=== PATIENT | female | born 1935 | race Caucasian/White ===

== ENCOUNTER 2023-09-25 22:06 | Inpatient (IN) | payer MEDICARE, BC, SELFPAY ==
[2023-09-25 18:59] VITALS: BMI 29.2
[2023-09-25 19:02] VITALS: BP 175/75
[2023-09-25 19:04] LABS: Glucose - Point of Care 255 mg/dl (70-99)
[2023-09-25 19:05] VITALS: BP 175/75
[2023-09-25 19:34] LABS: % Basophils 0.5 % (0-2); % Eosinophils 4.7 % (0-6); % Immature Granulocytes 0.3 % (0-0.5); % Lymphocytes 13.2 % (20.5-51.1); % Monocytes 5.5 % (1.7-9.3); % Neutrophils 75.8 % (42.2-75.2); Absolute Eosinophils 0.3 10^3/uL (0-0.7); Absolute Lymphocytes 0.8 10^3/uL (1.2-3.4); Absolute Monocytes 0.3 10^3/uL (0.1-0.6); Absolute Neutrophils 4.7 10^3/uL (1.4-6.5); Hematocrit 30.7 % (37.0-47.0); Hemoglobin 9.7 g/dL (12.0-16.0); Mean Corp Hgb Conc. 31.6 g/dL (33.0-37.0); Mean Corpuscular Hgb 29.8 pg (27.0-31.0); Mean Corpuscular Volume 94.2 fL (81.0-99.0); Mean Platelet Volume 9.7 fL (7.4-10.4); Nucleated Red Blood Cells % 0 %; Platelet Count 204 10^3/uL (130-400); Red Blood Cell Count 3.26 10^6/uL (4.20-5.40); Red Cell Dist. Width 14.3 % (11.5-14.5); White Blood Cell Count 6.2 10^3/uL (4.8-10.8)
--- NOTE | 2023-09-25 19:39 | ED.GENMED ---
Addendum entered and electronically signed by Andrea Wells DO 09/25/23 20:55:
Will give aspirin, not a tPA TNK candidate onset likely greater than 24 hours ago, will continue with permissive hypertension
Original Note:
History of Present Illness
General
Chief Complaint: Change in Mental Status
Source: patient, records and family
Exam Limitations: clinical condition and altered mental status
Time Seen by Provider: 09/25/23 19:04
Nursing documentation reviewed up to this point in time: agreed with
Travel History
Have you had any contact with someone who has COVID-19?: Unable to Answer
Do you have any symptoms of coronavirus? Fever > 100 degrees, chills, cough, shortness of breath, sore throat, loss of taste or smell, muscle aches, or headache?: Unable to Answer
History of Present Illness
History of Present Illness:
88-year-old female from [facility] where she has been for few days recently admitted with strep bacteremia to [place] treated with antibiotics she is diabetic, normal Monday night Monday morning yesterday apparently had some confusion since
which has been confused per the family speech has been slow, no fever no vomiting, my evaluation she moves all extremities, left lower extremity is swollen little bit red
Started on Keflex today, had a negative urinalysis today
Past History
Past History
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
Social History
Tobacco: Non-smoker
Alcohol: None
Drug: None
Living: shelter
Employment: Not employed
Phy Exam
Physical Exam
Physical Exam:
Physical Exam
General: no apparent distress, not acutely ill
Neck: No jaundice
Heart: regular
Lungs: no acute respiratory distress. clear bilaterally
Abdomen: non tender
Neuro: alert moves all extremities? right gaze absence
Skin: no rash
Psychiatric: cooperative
Extremities: edema, warm l>r
Course
Orders/Labs/Results
Orders:
Orders
09/25/23 19:07
EKG [Electrocardiogram (*1)] Urgent
Reason for Study: Other
Other Reason for Exam: change in mental status
09/25/23 19:08
EKG- Treatment ONCE
09/25/23 19:26
Complete Blood Count/With Diff Urgent
Comprehensive Metabolic Panel Urgent
09/25/23 19:27
Lactic Acid Urgent
09/25/23 19:28
Blood Culture Urgent
ESTRELLA Source: Blood/Venous
Specimen Description:
09/25/23 19:34
CT Head W/o Iv Contrast Urgent
Comment:
Reason For Exam: confusion
09/25/23 19:39
Blood Culture Urgent
ESTRELLA Source: Blood/Venous
Specimen Description:
Abnormal Lab Results
09/25/23 09/25/23
19:03 19:26
RBC 3.26 L 10^6/uL
(4.20-5.40)
Hgb 9.7 L g/dL
(12.0-16.0)
Hct 30.7 L %
(37.0-47.0)
MCHC 31.6 L g/dL
(33.0-37.0)
Absolute Lymphs (auto) 0.8 L 10^3/uL
(1.2-3.4)
Neutrophils % 75.8 H %
(42.2-75.2)
Lymphocytes % 13.2 L %
(20.5-51.1)
BUN 22 H mg/dl
(7-17)
Creatinine 1.1 H mg/dL
(0.6-1.0)
Glucose 248 H mg/dl
(70-99)
Calcium 8.3 L mg/dl
(8.4-10.2)
Alkaline Phosphatase 164 H U/L
(38-126)
Albumin 3.0 L g/dl
(3.5-5.0)
POC Glucose 255 H mg/dl
(70-99)
09/25/23 19:26
09/25/23 19:26
Vital Signs
Initial and Last Documented VS:
Initial Vital Signs
Resp
16
09/25/23 19:01
Last Documented Vital Signs
Temp Pulse Resp BP Pulse Ox
98.4 F 85 13 175/75 97
09/25/23 19:05 09/25/23 19:30 09/25/23 19:30 09/25/23 19:05 09/25/23 19:35
MDM/Problems Addressed
Differential Diagnosis Includes:
Cellulitis electrolyte abnormality stroke deconditioning
MDM/Problems Addressed:
Confusion
Chronic conditions affecting care:
Diabetes
Acute Exacerbation and/or Progression of Chronic Illness:
Diabetes
*Radiology
Radiology exam reviewed: preliminary read by ED provider
*Pulse Oximetry
Patient hypoxic: no
*EKG
Interpreted by ED Provider?: Yes
Interpretation: abnormal
Comparison EKG: no comparison EKG present
Heart Rate: 78
Rate: normal
Rhythm: sinus
Ischemia: non-specific ST changes
*[employer] Interpretation
Rate: normal
Interpretation: normal
Heart Rate: 78
*Critical Care Note
Total Time (30-74mins, 75-104mins- exclusive of procedures): Not Applicable
Update Note
Update Note:
Update labs noted CT report noted I think this explains her mental status change visual changes on the right
ED Attending Note
-
Portions of this chart may have been created with voice recognition software.� Occasional wrong word or��sound alike� substitutions may have occurred due to the inherent limitations of voice recognition software.
Discharge Plan
Departure
Patient Disposition: Admit
Date of Disposition: 09/25/23
Time of Disposition: 20:52
Admit to: Telemetry
Presentation/result/management discussed w/ accepting MD/DO: Hospitalist
Patient with high blood pressure during this ER visit?: Yes
Condition: Fair
Discharge Problem:
Subacute stroke
Prescriptions:
No Action
atorvastatin 40 mg Tablet
40 mg PO DAILY
oxybutynin chloride 10 mg Tablet Extended Release 24hr
10 mg PO DAILY
acetaminophen 500 mg Tablet
1,000 mg PO Q8H PRN (Reason: mild pain)
levothyroxine 100 mcg Tablet
100 mcg PO DAILY
magnesium hydroxide [Milk of Magnesia] 400 mg/5 mL Suspension
30 ml PO DAILY PRN (Reason: if no bm x 2 days)
bisacodyl [Dulcolax (bisacodyl)] 10 mg Suppository
10 mg WV DAILY PRN (Reason: if no bm in 8hrs after MOM)
cephalexin [Keflex] 500 mg Capsule
500 mg PO BID
pantoprazole 40 mg Tablet,Delayed Release (Dr/Ec)
40 mg PO DAILY
Fleet Enema 19-7 gram/118 mL Enema
118 ml WV DAILY PRN (Reason: if no bm 8hrs after suppository)
folic acid 1 mg Tablet
1 mg PO DAILY
diclofenac sodium 50 mg Tablet,Delayed Release (Dr/Ec)
50 mg PO BID
furosemide 20 mg Tablet
20 mg PO DAILY
Santyl 250 unit/gram Ointment
1 applic TOPICAL BID
Patient Comments:
09/25/2023: apply to sacral wound
lisinopril 40 mg Tablet
40 mg PO DAILY
pregabalin 50 mg Capsule
50 mg PO DAILY
insulin glargine 100 unit/mL (3 mL) Insulin Pen
18 unit SC HS
cholecalciferol (vitamin D3) [Vitamin D3] 50 mcg (2,000 unit) Tablet
50 mcg PO DAILY
buprenorphine HCl 75 mcg Film
75 mcg BUCCAL Q12H
naloxone 4 mg/actuation Irwin,Non-Aerosol
4 mg INTRANASAL Q3M PRN (Reason: opioid overdose)
Referrals:
Ankit Gil MD [Family Provider] -
Interventions
Interventions:
*Risk Screen - Suicide Last Done: 09/25/23 19:33
*General Assessment Last Done: 09/25/23 19:32
*Neglect/Abuse Screening Last Done: 09/25/23 19:33
ED- Fall Risk Assessment Last Done: 09/25/23 19:34
*ED COVID-19 Vaccine History Last Done: 09/25/23 19:32
ED- Pulmonary Assessment Last Done: 09/25/23 19:35
ED- Neurological Assessment Last Done: 09/25/23 19:09
ED- Cardiac Assessment Last Done: 09/25/23 19:34
ED Swallowing Screen Last Done: 09/25/23 19:34
Discharge Date and Time
Print Language: MALDIVIAN
[2023-09-25 19:46] LABS: Lactic Acid 1.1 mmol/L (0.7-2.0)
[2023-09-25 19:53] LABS: ALT (SGPT) 18 U/L (0-35); AST (SGOT) 32 U/L (14-36); Alkaline Phosphatase 164 U/L (38-126); Blood Urea Nitrogen 22 mg/dl (7-17); Calcium 8.3 mg/dl (8.4-10.2); Carbon Dioxide 26 mmol/L (22-30); Chloride 107 mmol/L (98-107); Estimated Creatinine Clearance 35 ml/min; Glucose 248 mg/dl (70-99); Sodium 139 mmol/L (135-145); Total Bilirubin 0.7 mg/dl (0.2-1.3); Total Protein 6.7 g/dl (6.3-8.2); eGFR 48.03
[2023-09-25 20:00] VITALS: BP 150/95
[2023-09-25 21:01] VITALS: BP 186/84
--- NOTE | 2023-09-25 21:26 | HPS.HSE ---
Family Physician
-
Family Physician: Ankit Gil
Chief Complaint
-
AMS
History of Present Illness
88F Res of CH, HX DM, HLD, Hypothyroid, recent Lt leg cellulitis complicated by strep bacteremia treated with at to [place]. Then sent to [facility]
Currently on Keflex
Evaluation for AMS noted by family especially abnormal slurred speech. Normally excellent memory, Nl speech
No prior HX CVA. No ton blood thinner.
Baseline ch ambulatory dysfunction . Use walker.
Yesterday, family noted slurred speech and confusion. No noticeable weakness over 24hrs
According to ER attd , noted Rt sided neglect but not replicate on my exam
.
Medical History
Past Medical History
Past Medical History: Reports HTN, Hypercholesterolemia and Hypothyroidism
Additional Past Medical History:
recent strep bacteremia, treated with ABx at to [place].
Past Surgical History: Reports Other
Social History
Tobacco: Non-smoker
Alcohol: None
Drug: None
Living: Skilled Nursing
Family History
Family History: Not pertinent
Allergies / Home Medications
Allergies reflects when Allergies were last updated in [employer].
Home Medications with original date entered in [employer]
Allergy/Medication List:
Allergies
Allergy/AdvReac Type Severity Reaction Status Date / Time
Sulfa (Sulfonamide Allergy Unknown Unknown Verified 09/25/23 20:30
Antibiotics)
Home Medications
acetaminophen 500 mg tablet 1,000 mg PO Q8H PRN mild pain 09/25/23
atorvastatin 40 mg tablet 40 mg PO DAILY 09/25/23
bisacodyl 10 mg rectal suppository (Dulcolax (bisacodyl)) 10 mg NH DAILY PRN if no bm in 8hrs after MOM 09/25/23
buprenorphine HCl 75 mcg buccal film 75 mcg buccal Q12H 09/25/23
cephalexin 500 mg capsule 500 mg PO BID 09/25/23
cholecalciferol (vitamin D3) 50 mcg (2,000 unit) tablet (Vitamin D3) 50 mcg PO DAILY 09/25/23
collagenase clostridium histo. 250 unit/gram topical ointment (Santyl) 1 applic topical BID 09/25/23
diclofenac sodium 50 mg tablet,delayed release 50 mg PO BID 09/25/23
folic acid 1 mg tablet 1 mg PO DAILY 09/25/23
furosemide 20 mg tablet 20 mg PO DAILY 09/25/23
insulin glargine 100 unit/mL (3 mL) subcutaneous pen 18 unit SC HS 09/25/23
levothyroxine 100 mcg tablet 100 mcg PO DAILY 09/25/23
lisinopril 40 mg tablet 40 mg PO DAILY 09/25/23
magnesium hydroxide 400 mg/5 mL oral suspension (Milk of Magnesia) 30 ml PO DAILY PRN if no bm x 2 days 09/25/23
naloxone 4 mg/actuation nasal spray 4 mg intranasal Q3M PRN opioid overdose 09/25/23
oxybutynin chloride 10 mg tablet,extended release 24 hr 10 mg PO DAILY 09/25/23
pantoprazole 40 mg tablet,delayed release 40 mg PO DAILY 09/25/23
pregabalin 50 mg capsule 50 mg PO DAILY 09/25/23
sodium phosphates 19 gram-7 gram/118 mL enema (Fleet Enema) 118 ml NH DAILY PRN if no bm 8hrs after suppository 09/25/23
Review of Systems
-
Constitutional: Reports No Symptoms
EENT: Reports No Symptoms
Respiratory: Reports No Symptoms
Cardiac: Reports No Symptoms
Abdomen/GI: Reports No Symptoms
: Reports No Symptoms
Musculoskeletal: Reports No Symptoms
Skin: Reports No Symptoms
Neurological: Reports See HPI
Endocrine: Reports No Symptoms
Hematologic/Lymphatic: Reports No Symptoms
Psych: Reports No Symptoms
Physical Exam
Vital Signs
Vital Signs
Temp Pulse Resp BP Pulse Ox
98.4 F 85 13 175/75 97
09/25/23 19:05 09/25/23 19:30 09/25/23 19:30 09/25/23 19:05 09/25/23 19:35
Physical Exam
General: Well Developed, No Apparent Distress and Comfortable
HEENT: NormoCephalic and Anicteric
Cardiac: S1/S2 and Regular Rhythm
Breast: Deferred by me
GI: Soft, Non Tender, Non Distended and Normal Bowel Sounds
Genito-urinary: Deferred by me
Musculoskeletal: Edema, Left Lower Extremity (receeding erythema, decreased edema per family )
Neuro: Awake, Alert, Oriented (to person and Hospital ), No Motor Deficits, Slurred Speech (mild expressive dysphasic ? cannot name 3 fruits scorrectly ) and Other (Abnormal Rt lateral gaze ); No Facial Droop or Tremors
Psych: Calm
Laboratory Results
-
09/25/23 19:26
09/25/23 19:26
Laboratory Results
Lactic Acid 1.1 mmol/L (0.7-2.0) 09/25/23 19:27
Total Bilirubin 0.7 mg/dl (0.2-1.3) 09/25/23 19:26
AST 32 U/L (14-36) 09/25/23 19:26
ALT 18 U/L (0-35) 09/25/23 19:26
Alkaline Phosphatase 164 U/L (38-126) H 09/25/23 19:26
Data Reviewed
-
CT Scan: Report Reviewed by me
Lab Data: Labs Reviewed by me
Impression/Plan
-
Reviewed VS: HR 85 BP 175/75
Data
Hgb 9.7
BUN 22
Cr 1.1
eGFR 48
BG 248
AKP 164
Alb 3.0
BCx sent
EKG
NORMAL SINUS RHYTHM
RIGHT BUNDLE BRANCH BLOCK
ABNORMAL ECG
HCT:
In the left parietal, occipital, and posterior and superior temporal lobes, focal area of decreased density, as described above. This likely represents an area of infarction, and most likely a subacute infarct. This could conceivably represent an
old area of infarction.
There is a second rounded area of decreased density within the posterior left temporal lobe more inferiorly, and this is also suspicious for a focal area of subacute infarction.
No evidence for mass effect or midline shift. No evidence for acute intracranial hemorrhage.
No prior admission to
ASSESSMENT & PLAN
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
HLD on atorvastatin to 40 HS
- s/p ASA 325
- then cont baby ASA daily
- [place] atorvastatin to 80 HS
- ECHO
- Brain MRI, MRA CoW, H & N
Lt leg cellulitis complicated by strep bacteremia @ OSH
Recent UTI
Afebrie , nl WCC
- check UA
- BCx x 2
- cont. PO Keflex for now
Hyperglycemia
IDDM
- add ISS low
- cont Lantus
Essential HTN
- Allow permissive HTN not more than 200/110
DVT Px: SCD
Code: Full
IP TLM
[2023-09-25 22:00] VITALS: BP 185/76
[2023-09-25] MEDS: ASPIRIN 325 MG PO (22:41)
[2023-09-25 23:00] VITALS: BP 95/64
[2023-09-26] VITALS (8 sets, daily range): BP systolic 112–165; BP diastolic 52–77; PULSE 86; O2SAT 96; BMI 25.3
[2023-09-26 01:43] LABS: Glucose - Point of Care 269 mg/dl (70-99)
[2023-09-26] MEDS: LANTUS 0.119999999999999996 UNITS SC ×2 (01:55→21:58)
[2023-09-26 02:12] LABS: Urine Albumin Negative (Neg - Trace); Urine Bilirubin Negative (Negative); Urine Character Clear (Clear); Urine Color Yellow; Urine Glucose Negative (Negative); Urine Ketone Negative (Negative); Urine Leukocyte Negative (Negative); Urine Nitrite Positive (Negative); Urine Occult Blood Negative (Negative); Urine Urobilinogen Negative (Neg - 1+); Urine pH 6.5 (5.0-9.0)
[2023-09-26 02:24] LABS: Urine Bacteria Many (Negative); Urine Red Blood Cell 0-2 /HPF (0-2); Urine White Cell 0-2 /HPF (0-5)
--- NOTE | 2023-09-26 03:00 | PTCARENOTE ---
Pt arrived to unit from ED and was a pullover assist x2 into bed from stretcher. Pt is AAOx1 to self only, confused but pleasant. Bed alarm in place for safety. Pt's call lopez in reach. VS on admission stable. Unable to give pt stroke packet
d/t cognitive impairment and no family at bedside. NIH on admission 4 for mild slurring and dysarthria, pt does not know month or age. SCDs in place. Will continue to monitor.
[2023-09-26] MEDS: SYNTHROID 100 MCG PO (06:02)
[2023-09-26 07:27] LABS: Glucose - Point of Care 119 mg/dl (70-99)
[2023-09-26] MEDS: NOVOLOG FLEXPEN-LOW RESISTANCE SC ×3 (07:28→17:25)
[2023-09-26 07:32] LABS: Hematocrit 25.1 % (37.0-47.0); Hemoglobin 8.2 g/dL (12.0-16.0); Mean Corp Hgb Conc. 32.7 g/dL (33.0-37.0); Mean Corpuscular Hgb 29.6 pg (27.0-31.0); Mean Corpuscular Volume 90.6 fL (81.0-99.0); Mean Platelet Volume 9.6 fL (7.4-10.4); Platelet Count 179 10^3/uL (130-400); Red Blood Cell Count 2.77 10^6/uL (4.20-5.40); Red Cell Dist. Width 14.2 % (11.5-14.5); White Blood Cell Count 6.6 10^3/uL (4.8-10.8)
[2023-09-26 07:58] LABS: HDL Cholesterol 29 mg/dl; Triglyceride 44 mg/dl (10-149); Very Low Density Lipoprotein 8 mg/dl (0-30)
[2023-09-26 07:59] LABS: ALT (SGPT) 15 U/L (0-35); AST (SGOT) 26 U/L (14-36); Albumin 2.4 g/dl (3.5-5.0); Alkaline Phosphatase 134 U/L (38-126); Blood Urea Nitrogen 19 mg/dl (7-17); Calcium 8.1 mg/dl (8.4-10.2); Carbon Dioxide 25 mmol/L (22-30); Chloride 108 mmol/L (98-107); Estimated Creatinine Clearance 34 ml/min; Glucose 120 mg/dl (70-99); Potassium 3.7 mmol/L (3.5-5.1); Sodium 138 mmol/L (135-145); Total Bilirubin 0.4 mg/dl (0.2-1.3); Total Protein 5.7 g/dl (6.3-8.2); eGFR 48.03
--- NOTE | 2023-09-26 08:06 | CON.NEURO4 ---
Addendum entered and electronically signed by Damian Miller MD 09/26/23 14:09:
Studies reviewed.
I have personally examined the patient. I reviewed and agree with the DIGITAL MARKETING ASSOCIATE's Note.
My addenda:
Awake, alert, interactive. No acute distress.
Speech intact with reduced output. Patient unable to name objects.
Follows 2-step requests w/ difficulty. No tremor.
Extra-ocular movements grossly intact.
Facial movements full and symmetric. Hearing intact to normal conversational volume.
Normal UE movements bilaterally.
Neck: full ROM.
Chest: no dyspnea
Heart: no JVD
Ext: (-) Clubbing, (-) Cyanosis, (-) Edema
IMPRESSIONS/RECOMMENDATIONS:
Abrupt onset of aphasia and confusion
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
Continue aspirin 81 mg due to risk of future ischemic injury
Goal of normotension
No clear benefit to echocardiogram
Rehabilitation evaluations
Follow cholesterol levels, little benefit likely to the use of lipid lowering agent
D/W patient / family
Will continue to follow peripherally..
Original Note:
Documented by User: Geri Guzman NP 09/26/23 12:00
Consultation - Neurology 4
-
CONSULTING PHYSICIAN: Damian Miller MD
REFERRING PHYSICIAN: Hospitalists/Dr. Bolanos
DICTATED BY: NATANAEL Hartman
DATE/TIME OF REQUEST: 09/26/23
DATE/TIME OF CONSULTATION: 09/26/23
Reason for Consultation: CVA
History of Present Illness:
This is an 88-year-old right-handed female who has presented to the hospital from [facility] rehab on 09/25/23 with report of confusion and speech difficulty. Patient was recently hospitalized at [facility] with LLE cellulitis
complicated by strep bacteremia then was discharged to [facility] for rehab. Patient is unable to provide history due to aphasia and confusion. Her granddaughter at bedside reports that family had dinner with the patient three days ago on 09/23/23
and report that the patient was at her baseline then. The following morning (09/24/23), she arrived at 1100 to see the patient, and noted that she could not get her words out, her speech sounded garbled, and she was squinting/struggling to see the TV
remote. At baseline, she is oriented x3 with no overt vision issues, and ambulates with a rolling walker. The [place] sent her urine for culture and started her on PO Keflex attributing her symptoms to a possible UTI. Yesterday (09/25/23), her symptoms had
still not improved, prompting her to be sent to the ER for evaluation. CT head was obtained in the ER and demonstrates a left parietal, occipital, and posterior/superior temporal lobe subacute ischemic infarct. She was not a candidate for TNK/IAT
due to outside of the time window and a stroke already established on CT head imaging. Patient reports that she feels confused. She denies any headache, dizziness, neck/back pain, speech/swallow difficulty, numbness, weakness, chest pain,
palpitations, and shortness of breath. Per patient's granddaughter, she has had TIAs and small old strokes visualized on brain imaging but she cannot provide any further details. She was not taking any blood thinning medications and it is unclear
why she wasn't on aspirin. Her granddaughter does not that she has had several falls with head and shoulder trauma in the past few years.
Past Medical History: HTN, HLD, NIDDM requiring insulin, hypothyroidism, recent strep bacteremia secondary to LLE cellulitis
Surgical History: Unknown.
Family History: Unknown.
Social History: Denies tobacco, alcohol, and illicit drug use.
Allergies: Sulfa.
Home Medications: See below.
Review of Symptoms:
Patient denies any fever, headache, chest pain, shortness of breath, GI or symptoms.
�Per the HPI.�All systems are reviewed negative except above.
�- Remove any of these problems that patient may have complained about in the HPI.
�- If patient is unresponsive, intubated or demented, say 'Per the HPI. I am unable to obtain a complete review of systems�because of patient's inability to provide history.'
Physical Exam:
The patient is afebrile, breathing is unlabored, abdomen is nondistended, skin is warm and dry, LLE with erythema, trace BLE edema.
NIH Stroke Scale:
I performed the NIH stroke scale on the patient on 09/26/23 at 1045. The patient scored 7 points on the NIH stroke scale assessment, which were assigned as follows: See below.
Neurologic Examination:
The patient is awake and alert. She is oriented to name only. She is able to follow some one-step commands and answer questions some appropriately. There is moderate expressive >receptive aphasia and mild dysarthria. On cranial nerve assessment,
pupils are 3 mm bilateral, round and reactive to light and accommodation. Visual hoyt are challenging to assess but appear decreased on the right in the right eye>left eye. Extraocular movements are intact. There is no facial asymmetry. Hearing is
intact bilaterally to normal conversation volume. Tongue palate and uvula are midline. Motor strengths are 5/5 LUE, 4+/5 RUE and 5/5 lower extremities on medical research Lytton scale. There is drift in the RUE. Mild swan necking. Mild low
amplitude persistent head tremor. Deep tendon reflexes are 1+ bilateral upper and absent bilateral lower extremities. Babinski is absent bilaterally. DEEPAK sensation. There is intermittent right-sided neglect on DBS. Coordination is intact by finger
to nose bilaterally.
Lab Results: See below.
Neuro Imaging:
1. CT Head 09/25/23: In the left parietal, occipital, and posterior and superior temporal lobes, focal area of decreased density, as described above. This likely represents an area of infarction, and most likely a subacute infarct. This could
conceivably represent an old area of infarction. There is a second rounded area of decreased density within the posterior left temporal lobe more inferiorly, and this is also suspicious for a focal area of subacute infarction. No evidence for mass
effect or midline shift. No evidence for acute intracranial hemorrhage.
2. MRI brain 09/26/23: Severely limited examination due to patient inability to hold still, motion artifact and repeat fast scanning. There is an acute/subacute infarct in the left temporal, parietal and occipital lobes as noted on the prior CT the
day before. There is no significant adjacent mass effect or edema. There is a small amount of hemosiderin consistent with hemorrhage in the posterior superior aspect of the occipital lobe portion of the infarct. Moderate volume loss. Moderate
leukoaraiosis.
3. Carotid ultrasound 09/26/23: Negative for flow-limiting carotid stenosis. By velocity criteria, any internal carotid artery stenosis present is in the range of 0-49%
Differentials for the patient's presentation include:
1. Acute/subacute left temporal, parietal, and occipital lobe ischemic infarct with a small amount of hemorrhage in the posterior occipital lobe portion of the infarct.
Patient has the following risk factors for their symptoms: Age, HTN, HLD, NIDDM
IV Tenecteplase/IAT candidacy: She was not a candidate for TNK/IAT due to outside of the time window and a stroke already established on CT head imaging.
Recommendations:
-Continue aspirin 81mg daily indefinitely.
-Goal normotension as it is greater than 24 hours from symptom onset.
-Ultrasound BLE ordered/pending to rule-out DVT.
-TTE ordered/pending per primary team.
-LDL goal <70. Inconclusive lipid panel results, will repeat study tonight. Continue home atorvastatin 40mg daily.
-Goal normoglycemia, hbA1c is 8.3.
-NIHSS and neurological checks per unit guidelines.
-Provide patient/family with stroke education packet.
-PT/OT/ST evaluations.
-DVT prophylaxis.
-Patient needs outpatient follow-up with Neurology in about 4 weeks, may see the DIGITAL MARKETING ASSOCIATE or one of the physicians.
Discussed patient care with: Dr. Miller, the patient
Vital Signs and Labs
-
Vital Signs and Labs:
Vital Signs
Temp Pulse Resp BP Pulse Ox
97.5 F 79 18 152/66 97
09/26/23 07:30 09/26/23 07:30 09/26/23 07:30 09/26/23 07:30 09/26/23 07:30
Lab Results
09/26/23 07:05
09/26/23 07:05
Sodium 138 mmol/L (135-145) 09/26/23 07:05
Potassium 3.7 mmol/L (3.5-5.1) 09/26/23 07:05
BUN 19 mg/dl (7-17) H 09/26/23 07:05
Glucose 120 mg/dl (70-99) H 09/26/23 07:05
Calcium 8.1 mg/dl (8.4-10.2) L 09/26/23 07:05
LDL Cholesterol, Calc 12.22395 mg/dl 09/26/23 07:05
Medications
-
Active Medications
Generic Name Dose Route Start Last Admin
Trade Name Freq PRN Reason Stop Dose Admin
Acetaminophen 650 mg 09/26/23 00:00
Acetaminophen 650 Mg Rectal Suppository RECTAL 10/24/23 00:00
Q4HPRN PRN
LEI, mild pain, or temp >100.4F
Acetaminophen 650 mg 09/26/23 00:00
Acetaminophen 325 Mg Tablet PO 10/24/23 00:00
Q4HPRN PRN
LEI, mild pain, or temp >100.4F
Aspirin 81 mg 09/26/23 08:00
Aspirin 81 Mg Chewable Tablet PO 10/24/23 07:59
DAILY FLORECITA
Atorvastatin Calcium 80 mg 09/26/23 08:00
Atorvastatin (Lipitor) 80 Mg Tablet PO 10/24/23 07:59
DAILY FLORECITA
Dextrose 12.5 grams 09/26/23 00:00
Dextrose 50% (0.5 Grams/Ml) 50 Ml Syringe IV 10/24/23 00:00
[id number] PRN
hypoglycemia
Protocol
Furosemide 20 mg 09/26/23 08:00
Furosemide 20 Mg Tablet PO 10/24/23 07:59
DAILY FLORECITA
Glucagon 1 mg 09/26/23 00:00
Glucagon 1 Mg Vial IM 10/24/23 00:00
PRN PRN
hypoglycemia
Protocol
Insulin Glargine 12 units/ 0.12 mls @ 0 mls/hr 09/26/23 01:00 09/26/23 01:55
Device SC 10/24/23 00:59 0.12 mls
HS FLORECITA Administration
As Directed
Insulin Aspart 0 units 09/26/23 07:30 09/26/23 07:28
Insulin Aspart Low Resistance 300 Units/3 Ml Pen.Injctr SC 10/24/23 07:29 Not Given
AC FLORECITA
Protocol
Levothyroxine Sodium 100 mcg 09/26/23 07:00 09/26/23 06:02
Levothyroxine 100 Mcg Tablet PO 10/24/23 06:59 100 mcg
DAILY AT 0700 FLORECITA Administration
Lisinopril 40 mg 09/26/23 08:00
Lisinopril 20 Mg Tablet PO 10/24/23 07:59
DAILY FLORECITA
Oxybutynin Chloride 5 mg 09/26/23 08:00
Oxybutynin 5 Mg Tablet PO 10/24/23 07:59
BID FLORECITA
Pantoprazole Sodium 40 mg 09/26/23 08:00
Pantoprazole 40 Mg Delayed Release Tablet PO 10/24/23 07:59
DAILY FLORECITA
Pregabalin 50 mg 09/26/23 08:00
Pregabalin 50 Mg Capsule PO 10/24/23 07:59
DAILY FLORECITA
Sodium Chloride 0 flush 09/26/23 01:00
Sodium Chloride 0.9% (Flush) Syringe IV 10/24/23 00:59
PER PROTOCOL FLORECITA
Home Medications
�Medication �Instructions �Recorded
acetaminophen 500 mg tablet 1,000 mg PO Q8H PRN mild pain 09/25/23
atorvastatin 40 mg tablet 40 mg PO DAILY 09/25/23
bisacodyl 10 mg rectal suppository 10 mg LA DAILY PRN if no bm in 09/25/23
(Dulcolax (bisacodyl)) 8hrs after MOM
buprenorphine HCl 75 mcg buccal 75 mcg buccal Q12H 09/25/23
film
cephalexin 500 mg capsule 500 mg PO BID 09/25/23
cholecalciferol (vitamin D3) 50 50 mcg PO DAILY 09/25/23
mcg (2,000 unit) tablet (Vitamin
D3)
collagenase clostridium histo. 250 1 applic topical BID 09/25/23
unit/gram topical ointment (Santyl)
diclofenac sodium 50 mg 50 mg PO BID 09/25/23
tablet,delayed release
folic acid 1 mg tablet 1 mg PO DAILY 09/25/23
furosemide 20 mg tablet 20 mg PO DAILY 09/25/23
insulin glargine 100 unit/mL (3 18 unit SC HS 09/25/23
mL) subcutaneous pen
levothyroxine 100 mcg tablet 100 mcg PO DAILY 09/25/23
lisinopril 40 mg tablet 40 mg PO DAILY 09/25/23
magnesium hydroxide 400 mg/5 mL 30 ml PO DAILY PRN if no bm x 2 09/25/23
oral suspension (Milk of Magnesia) days
naloxone 4 mg/actuation nasal spray 4 mg intranasal Q3M PRN opioid 09/25/23
overdose
oxybutynin chloride 10 mg 10 mg PO DAILY 09/25/23
tablet,extended release 24 hr
pantoprazole 40 mg tablet,delayed 40 mg PO DAILY 09/25/23
release
pregabalin 50 mg capsule 50 mg PO DAILY 09/25/23
sodium phosphates 19 gram-7 118 ml LA DAILY PRN if no bm 8hrs 09/25/23
gram/118 mL enema (Fleet Enema) after suppository
NIH Stroke Score
Subsequent NIH Scale
Date of Subsequent NIH Scale: 09/26/23
Time of Subsequent NIH Scale: 10:45
NIH Stroke Score
Level of Consciousness: 0 - Alert
LOC Questions: 2-Neither correct
LOC Commands: 0-Performs both correctly
Best Horizontal Gaze: 0-Normal
Visual Hoyt: 1=Partial hemianopia
Facial Palsy: 0=Normal, symmetrical
Motor - Right Arm: 1=Drift < 10 seconds
Motor - Left Arm: 0=No drift 10 seconds
Motor - Right Le-No drift 5 seconds
Motor - Left Le-No drift 5 seconds
Limb Ataxia: 0-Absent
Sensation: 0-Normal
Best Language: 1-Mild aphasia
Dysarthria: 1-Mild slurring
Extinction and Inattention: 1-Sensory inattention
Total Score:: 7
Modified Boon (mRS) Score
Modified Kiel Scale (mRS): Moderate disability. Requires some help, able to walk unassisted.
Score: 3

Documented by User: Damian Miller MD 09/26/23 13:54
Consultation - Neurology 4
-
CONSULTING PHYSICIAN: Damian Miller MD
REFERRING PHYSICIAN: Hospitalists/Dr. Boalnos
DICTATED BY: NATANAEL Hartman
DATE/TIME OF REQUEST: 09/26/23
DATE/TIME OF CONSULTATION: 09/26/23
Reason for Consultation: CVA
History of Present Illness:
This is an 88-year-old right-handed female who has presented to the hospital from [facility] rehab on 09/25/23 with report of confusion and speech difficulty. Patient was recently hospitalized at [facility] with LLE cellulitis
complicated by strep bacteremia then was discharged to [facility] for rehab. Patient is unable to provide history due to aphasia and confusion. Her granddaughter at bedside reports that family had dinner with the patient three days ago on 09/23/23
and report that the patient was at her baseline then. The following morning (09/24/23), she arrived at 1100 to see the patient, and noted that she could not get her words out, her speech sounded garbled, and she was squinting/struggling to see the TV
remote. At baseline, she is oriented x3 with no overt vision issues, and ambulates with a rolling walker. The [place] sent her urine for culture and started her on PO Keflex attributing her symptoms to a possible UTI. Yesterday (09/25/23), her symptoms had
still not improved, prompting her to be sent to the ER for evaluation. CT head was obtained in the ER and demonstrates a left parietal, occipital, and posterior/superior temporal lobe subacute ischemic infarct. She was not a candidate for TNK/IAT
due to outside of the time window and a stroke already established on CT head imaging. Patient reports that she feels confused. She denies any headache, dizziness, neck/back pain, speech/swallow difficulty, numbness, weakness, chest pain,
palpitations, and shortness of breath. Per patient's granddaughter, she has had TIAs and small old strokes visualized on brain imaging but she cannot provide any further details. She was not taking any blood thinning medications and it is unclear
why she wasn't on aspirin. Her granddaughter does not that she has had several falls with head and shoulder trauma in the past few years.
Past Medical History: HTN, HLD, NIDDM requiring insulin, hypothyroidism, recent strep bacteremia secondary to LLE cellulitis
Surgical History: Unknown.
Family History: Unknown.
Social History: Denies tobacco, alcohol, and illicit drug use.
Allergies: Sulfa.
Home Medications: See below.
Review of Symptoms:
Patient denies any fever, headache, chest pain, shortness of breath, GI or symptoms.
�Per the HPI.�All systems are reviewed negative except above.
�- Remove any of these problems that patient may have complained about in the HPI.
�- If patient is unresponsive, intubated or demented, say 'Per the HPI. I am unable to obtain a complete review of systems�because of patient's inability to provide history.'
Physical Exam:
The patient is afebrile, breathing is unlabored, abdomen is nondistended, skin is warm and dry, LLE with erythema, trace BLE edema.
NIH Stroke Scale:
I performed the NIH stroke scale on the patient on 09/26/23 at 1045. The patient scored 7 points on the NIH stroke scale assessment, which were assigned as follows: See below.
Neurologic Examination:
The patient is awake and alert. She is oriented to name only. She is able to follow some one-step commands and answer questions some appropriately. There is moderate expressive >receptive aphasia and mild dysarthria. On cranial nerve assessment,
pupils are 3 mm bilateral, round and reactive to light and accommodation. Visual hoyt are challenging to assess but appear decreased on the right in the right eye>left eye. Extraocular movements are intact. There is no facial asymmetry. Hearing is
intact bilaterally to normal conversation volume. Tongue palate and uvula are midline. Motor strengths are 5/5 LUE, 4+/5 RUE and 5/5 lower extremities on medical research Lytton scale. There is drift in the RUE. Mild swan necking. Mild low
amplitude persistent head tremor. Deep tendon reflexes are 1+ bilateral upper and absent bilateral lower extremities. Babinski is absent bilaterally. DEEPAK sensation. There is intermittent right-sided neglect on DBS. Coordination is intact by finger
to nose bilaterally.
Lab Results: See below.
Neuro Imaging:
1. CT Head 09/25/23: In the left parietal, occipital, and posterior and superior temporal lobes, focal area of decreased density, as described above. This likely represents an area of infarction, and most likely a subacute infarct. This could
conceivably represent an old area of infarction. There is a second rounded area of decreased density within the posterior left temporal lobe more inferiorly, and this is also suspicious for a focal area of subacute infarction. No evidence for mass
effect or midline shift. No evidence for acute intracranial hemorrhage.
2. MRI brain 09/26/23: Severely limited examination due to patient inability to hold still, motion artifact and repeat fast scanning. There is an acute/subacute infarct in the left temporal, parietal and occipital lobes as noted on the prior CT the
day before. There is no significant adjacent mass effect or edema. There is a small amount of hemosiderin consistent with hemorrhage in the posterior superior aspect of the occipital lobe portion of the infarct. Moderate volume loss. Moderate
leukoaraiosis.
3. Carotid ultrasound 09/26/23: Negative for flow-limiting carotid stenosis. By velocity criteria, any internal carotid artery stenosis present is in the range of 0-49%
Differentials for the patient's presentation include:
1. Acute/subacute left temporal, parietal, and occipital lobe ischemic infarct with a small amount of hemorrhage in the posterior occipital lobe portion of the infarct.
Patient has the following risk factors for their symptoms: Age, HTN, HLD, NIDDM
IV Tenecteplase/IAT candidacy: She was not a candidate for TNK/IAT due to outside of the time window and a stroke already established on CT head imaging.
Recommendations:
-Continue aspirin 81mg daily indefinitely.
-Goal normotension as it is greater than 24 hours from symptom onset.
-Ultrasound BLE ordered/pending to rule-out DVT.
-TTE ordered/pending per primary team.
-LDL goal <70. Inconclusive lipid panel results, will repeat study tonight. Continue home atorvastatin 40mg daily.
-Goal normoglycemia, hbA1c is 8.3.
-NIHSS and neurological checks per unit guidelines.
-Provide patient/family with stroke education packet.
-PT/OT/ST evaluations.
-DVT prophylaxis.
-Patient needs outpatient follow-up with Neurology in about 4 weeks, may see the DIGITAL MARKETING ASSOCIATE or one of the physicians.
Discussed patient care with: Dr. Miller, the patient
NIH Stroke Score
NIH Stroke Score
Total Score:: 7
Modified Boon (mRS) Score
Score: 3
[2023-09-26] MEDS: LASIX 20 MG PO (08:28)
[2023-09-26] MEDS: LOW STRENGTH ASPIRIN 81 MG PO (08:28)
[2023-09-26] MEDS: DITROPAN 5 MG PO ×2 (08:28→21:00)
[2023-09-26] MEDS: LIPITOR 80 MG PO (08:28)
[2023-09-26] MEDS: LYRICA 50 MG PO (08:28)
[2023-09-26] MEDS: PROTONIX 40 MG PO (08:28)
[2023-09-26] MEDS: ZESTRIL 40 MG PO (08:29)
[2023-09-26 08:35] LABS: VerifyNow Aspirin 515 ARU
[2023-09-26 08:36] LABS: Glycohemoglobin (HgbA1c) 8.3 % (4.0-5.6)
--- NOTE | 2023-09-26 10:09 | CM ---
Patient admitted from STR at [facility] was there for PT/OT s/p le infection.
[facility] will contact family to see if they want to pay for a bed hold.
Dx subacute CVA, will follow for d/c needs.
PT/OT evals pending, MRI results (P).
Plan: to be determined. Anticipate skilled rehab.
--- NOTE | 2023-09-26 11:37 | PTOTSP ---
ST Acute Care Evaluation
Pt presents with functional oral and pharyngeal parameters for safe PO intake of all solids and liquids. No skilled dysphagia tx necessary at this time.
Pt with overt, new onset difficulties with communication and cognition, per granddaughter at bedside.
Recommendations:
- Continue with regular solids, thin liquids, meds as tolerated.
- HEALTH AND FITNESS INSTRUCTOR to complete cognitive linguistic evaluation as able.
- Pt will likely need HEALTH AND FITNESS INSTRUCTOR services for cognitive communication upon d/c.
--- NOTE | 2023-09-26 11:38 | W.PN.HOSP.TC ---
Today's Communication/Plan
-
Echocardiogram
Lower extremity Doppler ultrasound
PT/OT
Assessment / Plan
Assessment / Plan
Gen-awake, alert, NAD
HEENT-NC, AT, anicteric, clear oral mm
Neck-supple
CV-reg, no M, +S1/S2
Lungs-clear B/L
Abd-soft, NT, ND
Ext-bilateral lower extremity edema
Musculoskeletal-no cyanosis, clubbing
Skin-warm and dry, bilateral lower extremity hyperpigmentation consistent with venous stasis dermatitis
Neuro-grossly non-focal
Psych-calm, cooperative
Subacute left hemispheric stroke - brain MRI completed, limited exam due to motion, does confirm acute to subacute infarct in the left temporal, parietal, occipital lobes. No significant mass effect or edema. Small amount of hemosiderin consistent
with hemorrhage in the posterior superior aspect of the occipital lobe portion of the infarct. Moderate volume loss. Moderate leukoaraiosis.
Carotid ultrasound negative for significant stenosis.
Echocardiogram pending.
PT/OT. Neurology consulted.
Unclear why patient was not on antiplatelet therapy prior to admission. Atorvastatin dose increased. Anticipate discharge back to [facility] when medically stable, possibly tomorrow. Informed case management. Family updated at the bedside.
Normocytic anemia -unknown etiology. Unknown acuity. Hemoglobin 9.7 last night, 8.2 today. No evidence of bleeding clinically. Check anemia labs. Obtain records from [place], recently hospitalized there last month. Family unaware of anemia
diagnosis.
DM2 with hyperglycemia -hemoglobin A1c 8.3%. Glucose 120 this morning, received Lantus 12 units last night. Usually on Lantus 18 units at bedtime as an outpatient. Monitor glucoses.
Hypothyroidism -continue levothyroxine.
Recent left lower extremity cellulitis -hospitalized in [facility] last month. Complicated by strep bacteremia. Try to obtain records.
Full code
Anticipated Discharge: Within 24 hours
Subjective/Interval History
-
Date of Service: September 26, 2023
Patient seen and examined. Looks comfortable. Granddaughter at the bedside. No complaints.
Objective Data
-
Labs:
Laboratory Results
09/26/23
07:05
WBC 6.6
Hgb 8.2 L
Hct 25.1 L
Plt Count 179
Sodium 138
Potassium 3.7
Chloride 108 H
Carbon Dioxide 25
BUN 19 H
Creatinine 1.1 H
Glucose 120 H
Calcium 8.1 L
Total Bilirubin 0.4
AST 26
ALT 15
Alkaline Phosphatase 134 H
Vital Signs:
Vital Signs
Temp Pulse Resp BP Pulse Ox
97.5 F 79 18 152/66 97
09/26/23 07:30 09/26/23 07:30 09/26/23 07:30 09/26/23 07:30 09/26/23 07:30
I&O
09/25/23 09/26/23 09/27/23
06:59 06:59 06:59
Intake Total 120 / 120
Balance 120 / 120
Review of Systems
-
History Source: Patient
All other systems: Reviewed and negative
[2023-09-26 12:07] LABS: Glucose - Point of Care 121 mg/dl (70-99)
--- NOTE | 2023-09-26 12:20 | WOUNDNOTE ---
WON RN NOTE: Patient admitted with rule out stroke, see computer for complete PMH. Patient is from [facility], is confused but follows commands. Able to stand on own and walk with walker, minimal assist/guidance. Patient incontinent, has what
appears to be MASD on edge of buttock creases, scattered pink shallow openings. Silicone foam applied, nurse aware can use Calazime if foam not holding. Brought in air chair cushion and assisted patient back to chair. Heels are blanchable red, asked
nurse to apply foam adhesives when back to bed. Will sign off.
--- NOTE | 2023-09-26 14:35 | PTOTSP ---
ST Speech Language Evaluation
Pt presents with moderately-severe receptive and expressive aphasia characterized by anomia, impaired short term memory, impaired auditory comprehension, impaired object recognition, impaired reading, impaired verbal fluency, as well as verbal and
phonemic paraphasias.
Pt would benefit from intensive RESTAURANT AREA DIRECTOR services upon discharge at the acute rehab level of care.
--- NOTE | 2023-09-26 15:39 | CM ---
Addendum entered by Casie Rey 09/26/23 16:15:
IA Completed.
patient lives with daughter 1 story home.
patient ambulates with a RW.
Daughter assists with ADLs.
PT/OT/ST recommending acute rehab.
Original Note:
Family decided not to hold bed at [facility].
PT/OT recommending acute rehab.
Discussed with graddaughter via phone.
referral to [facility].
Plan: rehab when stable.
[2023-09-26 15:54] LABS: LDL Cholesterol, Calculated 14 mg/dl; Total Cholesterol 51 mg/dl (50-199)
[2023-09-26 16:12] LABS: Iron 45 ug/dl (37-170)
[2023-09-26 16:21] LABS: Percent Saturation 21 % (20-50); Total Iron Binding Capacity 206 ug/dl (265-497)
[2023-09-26 17:10] LABS: Glucose - Point of Care 187 mg/dl (70-99)
[2023-09-26 17:16] LABS: Folate > 20.0 ng/ml (2.76-20); Vitamin B12 752 pg/ml (239-931)
[2023-09-26] MEDS: NOVOLOG FLEXPEN-LOW RESISTANCE 1 UNITS SC (17:35)
--- NOTE | 2023-09-26 20:20 | PTCARENOTE ---
[employer] 1700 pts monitor noted afib/flutter and EKG done. Heart rate controlled in the 80's. Dr Wayne and Dr Moore notified, cardiology consult placed. Pt was in no distress and heart rate stable. Pt appears to be going between SR and controlled
Afib/flutter.
[2023-09-26 21:24] LABS: Glucose - Point of Care 203 mg/dl (70-99)
[2023-09-27 03:12] VITALS: BP 137/75
[2023-09-27] MEDS: SYNTHROID 100 MCG PO (05:10)
[2023-09-27 07:30] VITALS: BP 132/77
[2023-09-27] MEDS: NOVOLOG FLEXPEN-LOW RESISTANCE SC (07:30)
[2023-09-27 07:47] LABS: Glucose - Point of Care 110 mg/dl (70-99)
[2023-09-27 08:14] LABS: % Basophils 0.5 % (0-2); % Eosinophils 5.5 % (0-6); % Immature Granulocytes 0.3 % (0-0.5); % Lymphocytes 14.1 % (20.5-51.1); % Monocytes 5.5 % (1.7-9.3); % Neutrophils 74.1 % (42.2-75.2); Absolute Eosinophils 0.5 10^3/uL (0-0.7); Absolute Lymphocytes 1.2 10^3/uL (1.2-3.4); Absolute Monocytes 0.5 10^3/uL (0.1-0.6); Absolute Neutrophils 6.4 10^3/uL (1.4-6.5); Hematocrit 27.2 % (37.0-47.0); Hemoglobin 8.6 g/dL (12.0-16.0); Mean Corp Hgb Conc. 31.6 g/dL (33.0-37.0); Mean Corpuscular Hgb 29.5 pg (27.0-31.0); Mean Corpuscular Volume 93.2 fL (81.0-99.0); Mean Platelet Volume 9.9 fL (7.4-10.4); Nucleated Red Blood Cells % 0 %; Platelet Count 185 10^3/uL (130-400); Red Blood Cell Count 2.92 10^6/uL (4.20-5.40); Red Cell Dist. Width 14.5 % (11.5-14.5); White Blood Cell Count 8.6 10^3/uL (4.8-10.8)
--- NOTE | 2023-09-27 08:43 | PN.CDI ---
CDI
- -
CDI:
Physician Documentation Request
Admit Date: 09/25/23 22:06
Dear Doctor Tone,
Patient admitted with subacute left hemispheric stroke.
/ Nursing skin assessment, 'Stage 2 sacral pressure injury, POA'
Physician documentation of the type and location of wounds is required for compliant documentation. Based on the above clinical findings and your assessment, please provide the following in your progress note:
Type (etiology) of ulcer/wound:
- Pressure (decubitus) ulcer
- Other
- Unable to determine
For a pressure ulcer, please also include the stage* of the ulcer:
- Stage 1 - Skin intact, non-blanchable redness
- Stage 2 - Partial thickness loss of dermis, includes intact or open blister
- Stage 3 - Full thickness tissue not including bone, tendon or muscle
- Stage 4 - Full thickness tissue loss, including exposed bone, tendon or muscle
- Unstageable - Full thickness loss in which the base of the ulcer is covered by slough (yellow, dumont, maloney, green or brown) and/or eschar (dumont, brown or black) in the wound bed.
- Unable to determine
Use of terms such as suspected, likely, concern for, or probable (associated with a specific diagnosis that is being evaluated, monitored, or treated as if it exists) are acceptable and can be coded in the inpatient setting, when documented at the
time of discharge.
Thank you,
Evon OWENS,RN,CCDS
CDI Specialist
Available via tiger text
Please use your independent medical judgment in providing your response.
*Source: National Pressure Ulcer Advisory Panel (NPUAP)
[2023-09-27 08:54] LABS: ALT (SGPT) 13 U/L (0-35); AST (SGOT) 27 U/L (14-36); Albumin 2.4 g/dl (3.5-5.0); Alkaline Phosphatase 124 U/L (38-126); Blood Urea Nitrogen 17 mg/dl (7-17); Calcium 8.1 mg/dl (8.4-10.2); Carbon Dioxide 27 mmol/L (22-30); Chloride 104 mmol/L (98-107); Estimated Creatinine Clearance 37 ml/min; Glucose 97 mg/dl (70-99); Sodium 139 mmol/L (135-145); Total Bilirubin 0.5 mg/dl (0.2-1.3); Total Protein 5.7 g/dl (6.3-8.2); eGFR 53.85
--- NOTE | 2023-09-27 09:22 | PN.CDI ---
CDI
- -
CDI:
Physician Documentation Request
Admit Date: 09/25/23 22:06
Dear Doctor Tone,
Patient admitted with subacute left hemispheric stroke.
ED note, 'Chief Complaint: Change in Mental Status....yesterday apparently had some confusion since which has been confused per the family....'
Based on the above, please clarify in the Progress Notes and Discharge Summary which, if any of the following, is the most likely etiology of the confusion/altered mental status:
Metabolic encephalopathy
Confusion only
Other
Use of terms such as suspected, likely, concern for, or probable (associated with a specific diagnosis that is being evaluated, monitored, or treated as if it exists) are acceptable and can be coded in the inpatient setting, when documented at the
time of discharge.
Thank you,
Evon OWENS,RN,CCDS
CDI Specialist
Available via [employer]agra[employer] text
Please use your independent medical judgment in providing your response.
[2023-09-27] MEDS: ZESTRIL 40 MG PO (09:29)
[2023-09-27] MEDS: LYRICA 50 MG PO (09:30)
[2023-09-27] MEDS: LASIX 20 MG PO (09:30)
[2023-09-27] MEDS: PROTONIX 40 MG PO (09:30)
[2023-09-27] MEDS: DITROPAN 5 MG PO (09:30)
[2023-09-27] MEDS: LOW STRENGTH ASPIRIN 81 MG PO (09:30)
--- NOTE | 2023-09-27 09:31 | W.PN.NEURO.1 ---
Addendum entered and electronically signed by Damian Miller MD 09/27/23 10:34:
Presence of DVT and need for anticoagulation should be treated with holding aspirin while using anticoagulation.
Original Note:
Today's Communication / Plan
-
No clear need for cholesterol-lowering agent based on low cholesterol levels
Continue aspirin
Continue rehabilitation
Neuro Assessment/Plan
Assessment
Abrupt onset of aphasia and confusion
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
Plan
No clear need for cholesterol-lowering agent based on low cholesterol levels
Continue aspirin
Continue rehabilitation
Follow as needed.
Subjective/Objective
Subjective Data
Date of Service: September 27, 2023
Objective Data
Vital Signs
Temp Pulse Resp BP Pulse Ox
37.0 C 70 18 132/77 96
09/27/23 07:30 09/27/23 07:30 09/27/23 07:30 09/27/23 07:30 09/27/23 07:30
Lab Results
09/27/23 07:23
09/27/23 07:23
Sodium 139 mmol/L (135-145) 09/27/23 07:23
Potassium 3.7 mmol/L (3.5-5.1) 09/26/23 07:05
BUN 17 mg/dl (7-17) 09/27/23 07:23
Glucose 97 mg/dl (70-99) 09/27/23 07:23
Calcium 8.1 mg/dl (8.4-10.2) L 09/27/23 07:23
LDL Cholesterol, Calc 14 mg/dl 09/26/23 07:05
Vitamin B12 752 pg/ml (239-931) 09/26/23 07:05
Patient Allergies
Sulfa (Sulfonamide Antibiotics) Allergy (Unknown, Verified 09/25/23 20:30)
Unknown
[2023-09-27 09:35] LABS: Potassium 3.4 mmol/L (3.5-5.1)
[2023-09-27] MEDS: LIPITOR PO (09:40)
--- NOTE | 2023-09-27 10:57 | W.PN.HOSP.TC ---
Addendum entered and electronically signed by Roshan Wayne DO 09/27/23 14:18:
Stage 2 sacral pressure injury, POA
Acute TME due to acute stroke
Addendum entered and electronically signed by Roshan Wayne DO 09/27/23 13:02:
New diagnosis of atrial flutter noted. Appreciate cardiology input. Outpatient follow-up to be arranged. Lopressor to be added. Check TSH. Eliquis already started for DVT which will also protect her against a potential stroke as a result of
atrial flutter.
Records from [place] reviewed.
Admitted on September 03, discharged on September 08 to SNF. Presented to [place] with altered mental status and vomiting. Diagnosed with Streptococcus pyogenes bacteremia presumably due to left cheilitis. Discharged on Keflex to complete 10 days.
Fecal impaction noted and treated.
Incidental right renal mass (16mm x 17mm) noted, urology outpatient follow-up recommended.
CBC done on September 08 in [facility] showed hemoglobin of 9.5, platelet count of 101, WBCs 5.7.
Original Note:
Today's Communication/Plan
-
Juan wraps to both legs
Ensure 3 times daily
Start Eliquis
Stop aspirin
Discharge
Assessment / Plan
Assessment / Plan
Gen-awake, alert, NAD
HEENT-NC, AT, anicteric, clear oral mm
Neck-supple
CV-reg, no M, +S1/S2
Lungs-clear B/L
Abd-soft, NT, ND
Ext-bilateral lower extremity edema
Musculoskeletal-no cyanosis, clubbing
Skin-warm and dry, bilateral lower extremity hyperpigmentation consistent with venous stasis dermatitis
Neuro-grossly non-focal
Psych-calm, cooperative
Subacute left hemispheric stroke - brain MRI completed, limited exam due to motion, does confirm acute to subacute infarct in the left temporal, parietal, occipital lobes. No significant mass effect or edema. Small amount of hemosiderin consistent
with hemorrhage in the posterior superior aspect of the occipital lobe portion of the infarct. Moderate volume loss. Moderate leukoaraiosis.
Carotid ultrasound negative for significant stenosis.
Echocardiogram with EF 55 to 60%, mild concentric LVH. Mild TR. No cardiac source of embolus identified.
Given new DVT, will discontinue aspirin per neurology recommendation.
Acute right lower extremity DVT -ultrasound shows mild nonocclusive thrombus in the right common femoral vein. Eliquis started. Discussed with family. Anticipate at least 3 months of anticoagulation. In light of anemia, have to closely monitor
hemoglobin. Discussed with family.
Normocytic anemia -unknown etiology. Unknown acuity. Hemoglobin 9.7 last night, 8.6 today. No evidence of bleeding clinically. B12, folic acid, iron studies within normal limits. Obtain records from [place], recently hospitalized there last
month. Family unaware of anemia diagnosis. Encouraged family to try to obtain baseline labs from patient's primary care doctor.
DM2 with hyperglycemia -hemoglobin A1c 8.3%. Glucose 97 this morning, continue Lantus 12 units at bedtime. Usually on Lantus 18 units at bedtime as an outpatient. Monitor glucoses.
Hypokalemia - replete orally. Check magnesium.
Hypothyroidism -continue levothyroxine.
Recent left lower extremity cellulitis -hospitalized in [facility] last month. Complicated by strep bacteremia. Try to obtain records.
Venous stasis dermatitis bilateral lower extremities -chronic. Juan wraps ordered. Elevate legs. Discussed with family. Discussed with nurse.
Full code
Dispo -medically stable for discharge to [facility] today. Discussed with nursing and case management, family.
35 minutes spent in discharge process.
Anticipated Discharge: Today
Subjective/Interval History
-
Date of Service: September 27, 2023
Patient seen and examined. Family at the bedside. No complaints. Family notes poor oral intake.
Objective Data
-
Labs:
Laboratory Results
09/27/23
07:23
WBC 8.6
Hgb 8.6 L
Hct 27.2 L
Plt Count 185
Sodium 139
Potassium 3.4 L
Chloride 104
Carbon Dioxide 27
BUN 17
Creatinine 1.0
Glucose 97
Calcium 8.1 L
Total Bilirubin 0.5
AST 27
ALT 13
Alkaline Phosphatase 124
Vital Signs:
Vital Signs
Temp Pulse Resp BP Pulse Ox
98.6 F 70 18 132/77 96
09/27/23 07:30 09/27/23 09:30 09/27/23 07:30 09/27/23 09:30 09/27/23 07:30
I&O
09/26/23 09/27/23 09/28/23
06:59 06:59 06:59
Intake Total 840 / 840
Balance 840 / 840
Review of Systems
-
History Source: Patient
All other systems: Reviewed and negative
--- NOTE | 2023-09-27 11:06 | W.DS.TRANS ---
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
-
Discharge Instructions:
Discharge Diagnosis/Procedures Acute stroke
Right lower extremity DVT
Anemia
Diet Low Cholesterol,Low Fat,Diabetic, Carb
Controlled
Activity As tolerated,With assistance
Driving Restrictions No driving
Bathing Restrictions None
Blood Work CBC, BMP in 48 hours
Instructions:
Stand-Alone Forms:
Changes to Home Medications: No
Discharge Medications:
DC Medications w/original date entered in [facility]
acetaminophen 500 mg tablet 1,000 mg PO Q8H PRN mild pain 09/25/23
bisacodyl 10 mg rectal suppository (Dulcolax (bisacodyl)) 10 mg AR DAILY PRN if no bm in 8hrs after MOM 09/25/23
buprenorphine HCl 75 mcg buccal film 75 mcg buccal Q12H chronic pain 09/25/23
folic acid 1 mg tablet 1 mg PO DAILY Supplement 09/25/23
furosemide 20 mg tablet 20 mg PO DAILY Fluid Retention/Swelling 09/25/23
levothyroxine 100 mcg tablet 100 mcg PO DAILY Thyroid 09/25/23
lisinopril 40 mg tablet 40 mg PO DAILY Blood Pressure 09/25/23
magnesium hydroxide 400 mg/5 mL oral suspension (Milk of Magnesia) 30 ml PO DAILY PRN if no bm x 2 days 09/25/23
naloxone 4 mg/actuation nasal spray 4 mg intranasal Q3M PRN opioid overdose 09/25/23
oxybutynin chloride 10 mg tablet,extended release 24 hr 10 mg PO DAILY Urinary Issue 09/25/23
pantoprazole 40 mg tablet,delayed release 40 mg PO DAILY Gastrointestinal Issue 09/25/23
pregabalin 50 mg capsule 50 mg PO DAILY chronic pain 09/25/23
Insulin Glargine Lantus [Lantus] 12 units As Directed mls/hr SC HS 09/27/23
apixaban 5 mg tablet (Eliquis) 10 mg (2 x 5 mg) PO BID #0 tabs 09/27/23
atorvastatin 80 mg tablet 80 mg PO DAILY #30 tabs 09/27/23
Home Medication Changes
Pending Results: No
[2023-09-27 11:14] LABS: Magnesium 1.5 mg/dl (1.6-2.3)
[2023-09-27 11:15] VITALS: BP 124/70
--- NOTE | 2023-09-27 11:20 | CM ---
Patient approved for [facility] today.
Bed available.
IMM completed.
Granddaughter updated.
Plan: [facility] today
[place]
Report# [phone]
--- NOTE | 2023-09-27 11:32 | CON.CAR ---
Addendum entered and electronically signed by Albert Forbes MD 09/27/23 13:14:
I saw and examined the patient.
The Court Recorder's note was reviewed and I agree with the note.
Comment: Briefly, 88-year-old woman presenting with confusion and slurred speech found to have subacute CVA
Was monitored on telemetry here and developed atrial flutter during the hospitalization which may be the source of stroke
Would initiate anticoagulation when safe from a neurology standpoint. Will initially be on higher dose of Eliquis due to newly identified DVT.
Heart rate has been relatively well controlled in atrial flutter, will plan for low-dose metoprolol
Original Note:
Consultation
Consultation Request
Date/Time Consultation Performed: 09/27/23
Requesting Provider: Dr. Wayne
Performing Provider: Isabel Friedman PA-C for Dr. Forbes
Reason for Consultation: aflutter
Medical History
-
Chief Complaint: confusion, slow speech
History of Present Illness:
Patient is an 88 yo F with PMH of hypertension, hyperlipidemia, insulin-dependent diabetes, hypothyroidism, recent admission to [facility] for felt to be secondary to strep bacteremia from lower extremity cellulitis who presented to
[facility] for evaluation of confusion and slow speech noted by family. She was noted to have evidence of acute left temporal, parietal, occipital infarcts. She was noted to go into atrial flutter on 09/26/2023 around 1 PM. This is a new
diagnosis for patient. Cardiology consulted for evaluation. She also had RLE US with partial thrombus.
PMH:
hypertension
hyperlipidemia
insulin-dependent diabetes
hypothyroidism
recent admission to [facility] for felt to be secondary to strep bacteremia from lower extremity cellulitis
chronic venous stasis
Past Medical History
Past Medical History: Other (in HPI)
Social History
Tobacco: Non-Smoker
Alcohol: None
Living: With Family
Employment: Retired
Allergies / Home Medications
Allergy/AdvReac Type Severity Reaction Status Date / Time
Sulfa (Sulfonamide Allergy Unknown Unknown Verified 09/25/23 20:30
Antibiotics)
�Medication �Instructions �Recorded �Confirmed �Type
acetaminophen 500 mg tablet 1,000 mg PO Q8H PRN mild pain 09/25/23 09/25/23 History
bisacodyl 10 mg rectal suppository 10 mg DE DAILY PRN if no bm in 09/25/23 09/25/23 History
(Dulcolax (bisacodyl)) 8hrs after MOM
buprenorphine HCl 75 mcg buccal 75 mcg buccal Q12H chronic pain 09/25/23 09/25/23 History
film
folic acid 1 mg tablet 1 mg PO DAILY Supplement 09/25/23 09/25/23 History
furosemide 20 mg tablet 20 mg PO DAILY Fluid 09/25/23 09/25/23 History
Retention/Swelling
levothyroxine 100 mcg tablet 100 mcg PO DAILY Thyroid 09/25/23 09/25/23 History
lisinopril 40 mg tablet 40 mg PO DAILY Blood Pressure 09/25/23 09/25/23 History
magnesium hydroxide 400 mg/5 mL 30 ml PO DAILY PRN if no bm x 2 09/25/23 09/25/23 History
oral suspension (Milk of Magnesia) days
naloxone 4 mg/actuation nasal spray 4 mg intranasal Q3M PRN opioid 09/25/23 09/25/23 History
overdose
oxybutynin chloride 10 mg 10 mg PO DAILY Urinary Issue 09/25/23 09/25/23 History
tablet,extended release 24 hr
pantoprazole 40 mg tablet,delayed 40 mg PO DAILY Gastrointestinal 09/25/23 09/25/23 History
release Issue
pregabalin 50 mg capsule 50 mg PO DAILY chronic pain 09/25/23 09/25/23 History
Insulin Glargine Lantus As Directed mls/hr SC HS 09/27/23 Rx
[Lantus] 12 units
apixaban 5 mg tablet (Eliquis) 10 mg (2 x 5 mg) PO BID #0 tabs 09/27/23 Rx
atorvastatin 80 mg tablet 80 mg PO DAILY #30 tabs 09/27/23 Rx
Review of Systems
-
History Source: Patient and Family
All other systems: Negative unless noted
Physical Exam
Vital Signs
Temp Pulse Resp BP Pulse Ox
98.6 F 70 18 132/77 96
09/27/23 07:30 09/27/23 09:30 09/27/23 07:30 09/27/23 09:30 09/27/23 08:00
Lab Results
09/27/23 07:23
09/27/23 07:23
Physical Exam
General: No Apparent Distress and Other (sitting in chair)
HEENT: Normocephalic, Anicteric and Moist Mucous Membranes
Respiratory: Crackles and Non Labored Respirations
Cardiac: S1/S2 and Irregular Rhythm
GI: Soft, Non Tender, Non Distended and Normal Bowel Sounds
Musculoskeletal: No Clubbing, No Cyanosis and Edema (trace RLE edema, 1+ LLE edema with discoloration)
Skin: Warm and Dry
Neuro: Awake, Alert and Oriented (to self, place. remains with some word finding difficulty)
Impression / Plan
-
Primary Veterinary Technician Instructor: none prior to admission
Assessment:
Presentation with confusion, slow speech
Acute/subacute L sided CVAs
Paroxysmal atrial flutter, new diagnosis of unclear duration
Partial RLE DVT
Normocytic anemia
Hypokalemia
hypertension
hyperlipidemia
insulin-dependent diabetes
hypothyroidism
recent admission to [facility] for felt to be secondary to strep bacteremia from lower extremity cellulitis
Chronic venous stasis
History of falls
ECHO 09/26/23: EF 55-60%, mild cLVH, mild TR, PAP 40-45mmHg, no cardiac source of embolus identified
Plan:
-Patient presents with confusion and slow speech, found to have multiple left-sided strokes by brain MRI. Was noted to go into atrial flutter /, new diagnosis for patient resulting in cardiology consultation
-[id number] score of at least 7 for age, female, HTN, DM2, CVA. also with partial RLE DVT so started on eliquis 10mg BID per primary service
-she does have history of falls. discussed increased bruising/bleeding risk on eliquis
-of note, brain MRI also with 'small amount of hemosiderin consistent with hemorrhage in the posterior superior aspect of the occipital lobe portion of the infarct.' follow hgb at [place]
-will continue rate control strategy at this time. she is not presently on any rate control agents. overall HRs adequate in aflutter on review of tele overnight. will place on low dose lopressor 12.5mg BID with hold parameters. can uptitrate as OP
as needed
-echo with results as above, reviewed with patient and family at bedside 09/26
-check TSH. on synthroid as OP
-replete K. continue OP dose of po lasix 20mg daily. follow volume status at [place]. check daily weights
-continue OP lisinopril as BP tolerates. Cr stable at 1.0
-continue PT/OT/ST
-planned for DC to [place] today
-OP cardiac follow up arranged
Data Reviewed
-
EKG: Tracing Personally Visualized and interpreted
Ultrasound: Report Reviewed by me
MRI: Report Reviewed by me
Medical Tests (Nuc Med, Echo etc): Report Reviewed by me
Labs: Labs Reviewed by me
Old Records: Reviewed
[2023-09-27] MEDS: ELIQUIS 10 MG PO (12:01)
[2023-09-27] MEDS: KCL 40 MEQ PO (12:02)
[2023-09-27] MEDS: MAGNESIUM OXIDE 500 MG PO (13:45)
[2023-09-27 13:52] LABS: Glucose - Point of Care 179 mg/dl (70-99)
[2023-09-27 14:00] LABS: TSH Reflex To Free T4 6.42 uIU/ml (0.47-4.68)
[2023-09-27] MEDS: NOVOLOG FLEXPEN-LOW RESISTANCE 1 UNITS SC (14:00)
[2023-09-27 14:30] LABS: Free T4 1.14 ng/dl (0.78-2.19)
[2023-09-27 15:15] VITALS: BP 123/75
--- NOTE | 2023-09-27 16:45 | PTCARENOTE ---
pt was received in bed with bilateral eyes closed and head of bed slightly elevated. pt was easily aroused to sound and touch. pt can make her needs known at times and understands when being spoken to. pt continues to have a poor appetite for
breakfast and lunch. pt was discharged to [facility]. [facility]. iv and tele pack removed. all of pt's belongings were collected and provided to transport
== END 2023-09-27 16:19 | DRG 64 ==
LOC: 4 WEST ACU 22:06
PROVIDERS: ADMITTING PHYSICIAN Internal Medicine; ATTENDING PHYSICIAN Hospitalist; CONSULT PHYSICIAN Internal Medicine Cardiovascular Disease; CONSULT PHYSICIAN Psychiatry & Neurology Neurology; EMERGENCY PHYSICIAN Emergency Medicine; FAMILY PHYSICIAN Internal Medicine
DX: I63.512 Cerebral infarction due to unspecified occlusion or stenosis of left middle cerebral artery (principal); G92.8 Other toxic encephalopathy; I82.411 Acute embolism and thrombosis of right femoral vein; L03.116 Cellulitis of left lower limb; N39.0 Urinary tract infection, site not specified; R78.81 Bacteremia; I48.92 Unspecified atrial flutter; R47.01 Aphasia; E11.65 Type 2 diabetes mellitus with hyperglycemia; E78.00 Pure hypercholesterolemia, unspecified; E03.9 Hypothyroidism, unspecified; B95.5 Unspecified streptococcus as the cause of diseases classified elsewhere; R26.2 Difficulty in walking, not elsewhere classified; L89.152 Pressure ulcer of sacral region, stage 2; I10 Essential (primary) hypertension; I87.8 Other specified disorders of veins; K56.41 Fecal impaction; E87.6 Hypokalemia; N28.89 Other specified disorders of kidney and ureter; D64.9 Anemia, unspecified; Z79.890 Hormone replacement therapy; Z88.2 Allergy status to sulfonamides; Z79.4 Long term (current) use of insulin; Z79.82 Long term (current) use of aspirin; Z86.73 Personal history of transient ischemic attack (TIA), and cerebral infarction without residual deficits; Z91.81 History of falling
CPT/HCPCS: 70450; 70551; 80053; 80061; 81003; 81015; 82607; 82728; 82746; 82962; 83036; 83540; 83550; 83605; 83735; 84439; 84443; 85025; 85027; 85045; 85576; 87040; 87070; 87086; 87088; 87147; 87186; 92523; 92610; 93005; 93306; 93880; 93970; 97167; 97530; 99285